=== PATIENT | male | born 1955 | race Caucasian/White ===

== ENCOUNTER 2018-07-23 13:54 | Outpatient (CLI) | payer OTHER | END 2018-07-23 14:04 | disposition home or self-care (01) | LOC: RAD 13:54 | DX: J20.8 Acute bronchitis due to other specified organisms (principal); I10 Essential (primary) hypertension ==

== ENCOUNTER 2018-07-23 15:32 | Outpatient (CLI) | payer OTHER | END 2018-07-23 15:40 | disposition home or self-care (01) | LOC: LAB 15:32 | DX: J20.8 Acute bronchitis due to other specified organisms (principal) ==